=== PATIENT | female | born 1955 | race African-American/Black ===

== ENCOUNTER 2023-10-31 17:54 | Emergency (ER) | payer OTHER ==
[2023-10-31 19:48] LABS: #Basophils 0.02 10x3/uL (0.0-0.2); #Eosinphils 0.66 10x3/uL (0.0-0.5); #Monocytes 0.49 10x3/uL (0.0-1.1); #Neutrophils 7.41 10x3/uL (1.5-8.4); %Basophils 0.2 % (0.0-2.0); %Eosinophils 6.9 % (0.0-6.0); %Lymphocytes 10.6 % (18.0-47.0); %Monocytes 5.1 % (0.0-10.0); Hematocrit 30.9 % (34.9-44.5); Hemoglobin 9.8 g/dL (12.0-15.5); Mean Corpuscular HGB CONC 31.7 g/dL (32.0-36.0); Mean Corpuscular Hemoglobin 26.5 pg (27.0-33.0); Mean Corpuscular Volume 83.5 fL (81.6-98.3); Mean Platelet Volume 9.3 fL (7.4-10.4); Platelet Count 206 10x3/uL (150-450); RBC Distribution Width 14.7 % (11.5-14.5); White Blood Cell (WBC) Count 9.6 10x3/uL (3.5-10.5)
[2023-10-31] MEDS ORDERED: Morphine 4 MG/ML VIAL ONE ×2 (19:53→22:20)
[2023-10-31 20:01] LABS: ALT (SGPT) 11 U/L (8-55); AST (SGOT) 14 U/L (5-34); Albumin 3.1 g/dL (3.4-4.8); Alkaline Phosphatase 51 U/L (40-110); Anion Gap 11 mmol/L (10-20); BUN (Urea Nitrogen) 23 mg/dL (9.8-20.1); Bilirubin, Total 0.3 mg/dL (0.2-1.2); Calc. Creatinine Clearance 0 mL/min (70-130); Calcium 8.6 mg/dL (7.8-10.44); Carbon Dioxide 24 mmol/L (23-31); Chloride 105 mmol/L (98-107); Estimated GFR 25; Globulin 4.3 g/dL (2.4-3.5); Glucose 189 mg/dL (80-115); Potassium 4.2 mmol/L (3.5-5.1); Protein, Total 7.4 g/dL (5.8-8.1); Sodium 136 mmol/L (136-145)
[2023-10-31 20:05] LABS: Troponin I 0.023 ng/mL (< 0.028)
[2023-10-31] MEDS ORDERED: hydrALAZINE 20 MG/ML VIAL ONE (23:07)
== END 2023-11-01 00:41 | disposition home or self-care (01) ==
LOC: CSHERS 17:54
DX: S80.01XA Contusion of right knee, initial encounter (principal); I82.402 Acute embolism and thrombosis of unspecified deep veins of left lower extremity; E11.9 Type 2 diabetes mellitus without complications; W19.XXXA Unspecified fall, initial encounter
CPT/HCPCS: 73552; 73564; 73700; 80053; 84484; 85025; 93005; 93970; J0360; J2270; 36415; 96372; 96374; 96375